=== PATIENT | male | born 1980 | race Caucasian/White ===

== ENCOUNTER 2020-09-11 17:24 | Emergency (ER) | payer SELFPAY ==
[~2020-09-11] VITALS: Ht 172.7 cm; Wt 65.9 kg
[2020-09-11 17:28] VITALS: Ht 172.7 cm; Wt 65.9 kg
[2020-09-11] MEDS ORDERED: CEPHALEXIN500 M1 PO (19:02)
[2020-09-11] MEDS ORDERED: CLEOCIN HCL300 MG PO (19:02)
[2020-09-11] MEDS ORDERED: DICLOFENAC SODI50 MG PO (19:02)
[2020-09-11 20:38] VITALS: BP 121/86
== END 2020-09-11 20:39 | disposition home or self-care (01) ==
LOC: D.ER 17:24
DX: B37.2 Candidiasis of skin and nail (principal); L03.011 Cellulitis of right finger; Z59.0 Homelessness